=== PATIENT | male | born 1980 | race Caucasian/White ===

== ENCOUNTER → 2016-09-08 | Day surgery (SDC) | payer BC ==
[~2016-09-08] MED LIST: ALEVE220 M1 PO; KRATOM PO; OSTEO BI-FLEX1 EAC2 PO
--- NOTE | ~2016-09-08 | OR ---
Unit #: [id number] #: [id number] Patient: LEXI ALEMAN [id number] [address] [place], [place] [address] [id number] O MR#: [id number] NAME: LEXI ALEMAN ROOM: Date of Procedure: 09/08/2016 Admission Date: 09/08/2016 Surgeon: Bentley White M.D. : 1980 Attending Physician: Bentley White M.D. Primary Care Physician: Robert Maravilla M.D. OPERATIVE REPORT PREOPERATIVE DIAGNOSIS Right inguinal hernia. POSTOPERATIVE DIAGNOSES 1. Incarcerated indirect right inguinal hernia. 2. Left indirect inguinal hernia. PROCEDURES PERFORMED 1. Laparoscopic preperitoneal inguinal hernia repair of incarcerated right inguinal hernia. 2. Laparoscopic preperitoneal inguinal hernia repair of left-sided indirect inguinal hernia. ASSISTANT CHILD CARE TEACHER Jose Zapata M.D. ANESTHESIA General endotracheal anesthesia. ESTIMATED BLOOD LOSS Minimal. IV FLUIDS 700 crystalloid. COMPLICATIONS None. INDICATIONS FOR PROCEDURE The patient is a 36-year-old gentleman with a bulge in his right groin consistent with an inguinal hernia. DESCRIPTION OF PROCEDURE The patient was taken to the operating theater and placed in supine position. General anesthesia was induced. The abdomen was prepped and draped. An infraumbilical incision was then made. A small incision was made in the anterior sheath. I created the preperitoneal space with blunt dissection. A Veress needle was placed intra-abdominally. The abdomen was insufflated to 15 mmHg with CO2. Under direct vision, I placed a 5-mm port. The patient was placed in Trendelenburg. I identified the aforementioned hernias. I reduced the right-sided hernia with gentle external palpation. I saw no other abnormalities. The pneumoperitoneum Unit #: [id number] #: [id number] Patient: LEXI ALEMAN was released. I then created the preperitoneal space with the AutoSuture balloon dissection system. I placed 2 5-mm ports in the midline. I dissected the right groin, identifying the lateral space. Med ligament was identified. There was no direct defect. Then skeletonized the cord, the hernia sac from the cord. I then transected the hernia sac and placed an endoloop thus reducing the hernia. I then placed a large 3DMax mesh into position. This covered the direct and indirect spaces nicely. This was secured to Med ligament with a tacking device as well as lateral anterior musculature. I then positioned to the other side of the table and created a similar dissection on the left side. I created the lateral space. I identified Med ligament. I skeletonized the cord. The hernia sac was then down off the cord. I did not transect the sac on the left side. I then placed a large 3DMax mesh into position. This was anteriolized and then secured to Med ligament as well as lateral anterior musculature of the tacking device. Hemostasis was adequate. I released the pneumo preperitoneal care taken to avoid the peritoneum sliding posterior to the mesh. Hemostasis was adequate. I removed the ports, closed the fascia with 0 Vicryl, skin with 4-0 Vicryl. The patient tolerated the procedure well and was sent to the recovery room in good condition. Dictated by... Suyapa Jimenez/cuco TD: 09/09/2016 00:09 JOB #: [id number] OPERATIVE REPORT Page 1 of 1 X Bentley White MD X PROCEDURE OPERATIVE NOTE
== END | disposition home or self-care (01) ==
LOC: CSUR 07:06
DX: K40.30 Unilateral inguinal hernia, with obstruction, without gangrene, not specified as recurrent (principal); K40.90 Unilateral inguinal hernia, without obstruction or gangrene, not specified as recurrent; Z87.81 Personal history of (healed) traumatic fracture; Z87.891 Personal history of nicotine dependence; Z79.1 Long term (current) use of non-steroidal anti-inflammatories (NSAID); Z79.899 Other long term (current) drug therapy
CPT/HCPCS: C1781; J0330; J0690; J1100; J1644; J2250; J2405; J2710; J3010